=== PATIENT | male | born 2000 | race Caucasian/White ===

== ENCOUNTER 2021-04-12 23:37 | Inpatient (IN) | payer SELFPAY ==
[~2021-04-12] VITALS: Ht 182.9 cm; Wt 83.5 kg
--- NOTE | 2021-04-12 23:52 | NUR ---
BIBS WITH C/O SYNCOPAL EPISODES X2 DAYS. "I BLACK OUT EVERY NOW AND THEN". -TRUAMA -NAUSEA - VOMITTING. DOES NOTE REMEMBER WHEN SYNCOPAL EPISODE HAPPENED. PT A/OX4. TOLERATING R/A WELL WITH NO SOB. DENIES TAKING MEDICATIONS, DRINKING ETOH.
--- NOTE | 2021-04-13 00:10 | NUR ---
URINE COLLECTED AND SENT TO LAB
--- NOTE | 2021-04-13 00:22 | NUR ---
LABS BLOODWORK COLLECTED AND SENT TO LAB. INITIATED RAC #20G S/L
[2021-04-13 00:33] LABS: BASOPHILS % (AUTO) 0.5 % (0.0-2.0); EOSINOPHILS % (AUTO) 0.6 % (0.0-6.0); HEMATOCRIT 48 % (39-51); HEMOGLOBIN 16.2 g/dL (13.5-17.5); LYMPHOCYTES # (AUTO) 2.3 K/uL (0.8-4.8); LYMPHOCYTES % (AUTO) 25.1 % (20.0-44.0); MEAN CORPUSCULAR HGB CONC 34 g/dl (31.0-36.0); MEAN CORPUSCULAR VOLUME 88 fL (80-96); MONOCYTES # (AUTO) 0.6 K/uL (0.1-1.30); NEUTROPHILS # (AUTO) 6.3 K/uL (1.8-8.9); NEUTROPHILS % (AUTO) 67.8 % (43.0-81.0); PLATELET COUNT (AUTO) 215 K/uL (150-450); RED BLOOD CELL COUNT(AUTO) 5.44 MIL/uL (4.5-6.0); WHITE BLOOD COUNT (AUTO) 9.3 K/uL (4.3-11.0)
[2021-04-13 00:46] LABS: ALANINE AMINOTRANSFERASE 29 U/L (12-78); ALBUMIN 4.5 g/dL (3.4-5.0); ALKALINE PHOSPHATASE 67 U/L (46-116); ASPARTATE AMINOTRANSFERASE 19 U/L (15-37); BILIRUBIN,DIRECT 0.1 mg/dL (0.0-0.2); BILIRUBIN,TOTAL 0.5 mg/dL (0.2-1.0); CALCIUM, SERUM 9.2 mg/dL (8.5-10.1); CARBON DIOXIDE 24 mmol/L (21-32); CHLORIDE 107 mmol/L (98-107); CREATININE 0.9 mg/dL (0.6-1.3); GLUCOSE 90 mg/dL (74-106); POTASSIUM 3.5 mmol/L (3.5-5.1); SODIUM SERUM 145 mmol/L (136-145); TOTAL PROTEIN, SERUM 7.8 g/dL (6.4-8.2); UREA NITROGEN, BLOOD 13 mg/dL (7-18)
--- NOTE | 2021-04-13 00:46 | NUR ---
XRAY AT BEDSIDE
[2021-04-13] MEDS ORDERED: MAG HYDROX/AL HYDROX/SIMETH 30 ML UDC PO PRN (02:00)
[2021-04-13] MEDS ORDERED: MAGNESIUM HYDROXIDE 30 ML UDC PO PRN (02:00)
[2021-04-13] MEDS ORDERED: ONDANSETRON HCL/PF 4 MG/2 ML VIAL IVP PRN (02:00)
[2021-04-13] MEDS ORDERED: ACETAMINOPHEN 325 MG TABLET PO PRN (02:00)
[2021-04-13] MEDS ORDERED: Z GUARD REMEDY 2 OZ OINT TP PRN (02:00)
--- NOTE | 2021-04-13 03:12 | NUR ---
PT ASSIGNED TO BED 329
--- NOTE | 2021-04-13 03:33 | NUR ---
REPORT GIVEN TO 3W ASYA PERALES
[2021-04-13 03:38] VITALS: BP 146/72
--- NOTE | 2021-04-13 03:44 | NUR ---
TRANSFERRED PT VIA ACLS PROTOCOL. ALL PT BELONGINGS WITH PT.
[2021-04-13 03:48] VITALS: BP 146/72
--- NOTE | 2021-04-13 03:49 | NUR ---
ADMITTING NOTES RN PT IS A 20 YEAR OLD MALE WITH NO PERTINENT MEDICAL HX OTHER THAN CANNABIS USE. A/O X4 NO PAIN OR RESPIRATORY DISTRESS NOTED OR REPORTED AT THIS TIME. PT IS ON A TELE MONITOR SINUS BRADYCARDIA. PT HAS IV ACCESS ON THE L AC 20# G S/L FLUSHED AND INTACT. PT PRESENTED TO THE ER AFTER HAVING 3-4 EPISODES OF LOSS OF CONSCIOUSNESS PER PT " I WAS SITTING IN BED TALKING TO MY FRIEND WHEN SUDDENLY I STARTED SEEING BLACK DOTS I DON'T REMEMBER ANY THING ELSE AFTER THAT BUT MY FRIENDS SAID IT HAPPENED MULTIPLE TIMES 3-4 TIMES IN TOTAL IT EVEN HAPPENED ON THE WAY TOT HE HOSPITAL" PT HAS NOT HAD ANY MORE EPISODES OF LOSS OF CONSCIOUSNESS PT DENIES HEADACHE N/V AT THIS TIME. PT DID STATE THAT LOSS OF CONSCIOUSNESS IN PRECIPITATED BY "FEELING OF NAUSEA AND SUPER WARM RIGHT BEFORE I BLACK OUT" PT STATED HE HAS BEEN HAVING THESE EPISODE SINCE TWO DAYS AGO. PT SKIN IS WARM AND DRY NO VISIBLE DISCOLORATION PT REFUSED FULL BODY ASSESSMENT AT THIS TIME. BELONGS CHECKED. PT HELPED TO THE RESTROOM PT HAS STEADY GAIT BUT WAS INSTRUCTED TO USE CALL LIGHT IF HE NEEDS TO GET UP DUE TO RECENT LOSS OF CONSCIOUSNESS PT AGREED CALL LIGHT WITHIN REACH, BEDSIDE TABLE WITHIN REACH. BED ALARM ON BILATERAL SIDE RAILS UP FOR SAFETY. HOB ELEVATED FOR ASPIRATION PRECAUTIONS. WILL CONTINUE TO MONITOR.
--- NOTE | 2021-04-13 06:30 | NUR ---
RN NOTES A/O X4 NO PAIN OR RESPIRATORY DISTRESS NOTED OR REPORTED AT THIS TIME. PT IS ON A TELE MONITOR SINUS BRADYCARDIA WITH SINUS ARRHYTHMIA . PT HAS IV ACCESS ON THE LAC 20# G S/L FLUSHED AND INTACT. NO N/V REPORTED NO HEADACHE, NO EPISODES OF LOSS ON CONSCIOUSNESS. ALL NURSING NEEDS MET THROUGHOUT THE SHIFT.INSTRUCTED PT TO USE CALL LIGHT IF HE NEEDS TO GET UP DUE TO EPISODES OF LOSS OF CONSCIOUSNESS PT AGREED CALL LIGHT WITHIN REACH, BEDSIDE TABLE WITHIN REACH. BED ALARM ON BILATERAL SIDE RAILS UP FOR SAFETY. HOB ELEVATED FOR ASPIRATION PRECAUTIONS. WILL ENDORSE CARE TO DAY SHIFT NURSE.
--- NOTE | 2021-04-13 07:30 | NUR ---
ON SITE SERVICES SPECIALIST OPENING NOTES RECEIVED PATIENT IN BED, A/O X4, IN NO ACUTE DISTRESS NOTED. PT IS ON A TELE MONITOR SINUS BRADYCARDIA WITH SINUS ARRHYTHMIA HR AT 59. PT HAS IV ACCESS ON THE LAC 20# G S/L FLUSHED AND INTACT. NO N/V REPORTED NO HEADACHE. SAFETY PRECAUTIONS IN PLACE: INSTRUCTED PT TO USE CALL LIGHT IF HE NEEDS TO GET UP DUE TO EPISODES OF LOSS OF CONSCIOUSNESS PT AGREED CALL LIGHT WITHIN REACH, BEDSIDE TABLE WITHIN REACH. BED ALARM ON BILATERAL SIDE RAILS UP FOR SAFETY. HOB ELEVATED FOR ASPIRATION PRECAUTIONS. WILL CONTINUE TO MONITOR ACCORDINGLY.
[2021-04-13] MEDS: PANTOPRAZOLE 40 MG TABLET.DR PO SCH (07:38)
[2021-04-13 08:00] VITALS: BP 124/60
[2021-04-13] MEDS: BENAZEPRIL HCL 10 MG TABLET PO SCH (08:46)
[2021-04-13 12:00] VITALS: BP 137/71
[2021-04-13 16:00] VITALS: BP 120/72
--- NOTE | 2021-04-13 18:24 | NUR ---
DRAFTER TOPOGRAPHICAL CLOSING NOTES PATIENT IN BED, ASLEEP, EASILY AWAKEN BY VERBAL AND TACTILE STIMULI, IN NO ACUTE DISTRESS NOTED. PT IS ON A TELE MONITOR SR HEART RATE AT 70'S. PT HAS IV ACCESS ON THE LAC 20# G S/L FLUSHED AND INTACT. NO N/V REPORTED, NO HEADACHE., NO DIZZINESS. SAFETY PRECAUTIONS IN PLACE: BEDSIDE TABLE WITHIN REACH. BED ALARM ON BILATERAL SIDE RAILS UP FOR SAFETY. HOB ELEVATED FOR ASPIRATION PRECAUTIONS. BED ON LOWEST LOCKED POSITION. ALL NEEDS ATTENDED AND MET. DUE MEDS GIVEN ORDERED. WILL ENDORSE TO ONCOMING SHIFT FOR ELIAS.
--- NOTE | 2021-04-13 19:30 | NUR ---
RN OPENING NOTE PATIENT IN BED AWAKE, WITH VISITORS AT BEDSIDE. PATIENT IS ABLE TO MAKE NEEDS KNOWN, A/O X 4. PATIENT DOES NOT COMPLAIN OF DIZZINESS AT THIS TIME. PATIENT NOT IN ANY APPARENT DISTRESS. TOLERATING ROOM AIR. PATIENT'S TELE MONITOR READS SR 72 BPM. SAFETY MEASURES IN PLACE: BED LOCKED AND IN LOWEST POSITION, CALL LIGHT WITHIN REACH, SIDE RAILS UP. WILL MONITOR PATIENT CLOSELY.
[2021-04-13 20:00] VITALS: BP 143/92
--- NOTE | 2021-04-13 20:15 | NUR ---
RN NOTE PATIENT GIVEN TYLENOL FOR MILD PAIN
[2021-04-14] VITALS: BP 129/75
--- NOTE | 2021-04-14 03:58 | NUR ---
RN NOTE PATIENT REFUSED 4 AM VITALS CHECK
[2021-04-14 07:11] LABS: BASOPHILS % (AUTO) 0.6 % (0.0-2.0); EOSINOPHILS % (AUTO) 1.9 % (0.0-6.0); HEMATOCRIT 47 % (39-51); HEMOGLOBIN 16.2 g/dL (13.5-17.5); LYMPHOCYTES # (AUTO) 2.2 K/uL (0.8-4.8); LYMPHOCYTES % (AUTO) 36.5 % (20.0-44.0); MEAN CORPUSCULAR HGB CONC 34 g/dl (31.0-36.0); MEAN CORPUSCULAR VOLUME 89 fL (80-96); MONOCYTES # (AUTO) 0.5 K/uL (0.1-1.30); MONOCYTES % (AUTO) 8.4 % (2.0-12.0); NEUTROPHILS # (AUTO) 3.1 K/uL (1.8-8.9); NEUTROPHILS % (AUTO) 52.6 % (43.0-81.0); PLATELET COUNT (AUTO) 199 K/uL (150-450); RED BLOOD CELL COUNT(AUTO) 5.33 MIL/uL (4.5-6.0); WHITE BLOOD COUNT (AUTO) 5.9 K/uL (4.3-11.0)
--- NOTE | 2021-04-14 07:30 | NUR ---
received pt. in am alert and oriented x4.vs stable.no complaints offered.
--- NOTE | 2021-04-14 07:33 | NUR ---
RN CLOSING NOTE PATIENT IN BED, EASILY AWAKENED. RAC 20 G PATENT AND INTACT. NO COMPLAINS OF ANY PAIN OR DISCOMFORT. TELE MONITOR READS SR 70 BPM. BREATHING EVEN AND UNLABORED. ALL ORDERS CARRIED OUT, ALL NEEDS MET AND ATTENDED. SAFETY MEASURES MAINTAINED. ENDORSED TO DAY SHIFT NURSE FOR ELIAS.
[2021-04-14 07:37] LABS: ALBUMIN 4.3 g/dL (3.4-5.0); BILIRUBIN,TOTAL 0.7 mg/dL (0.2-1.0); CALCIUM, SERUM 9.1 mg/dL (8.5-10.1); PHOSPHORUS 5.1 mg/dL (2.5-4.9); POTASSIUM 3.7 mmol/L (3.5-5.1); TOTAL PROTEIN, SERUM 7.6 g/dL (6.4-8.2)
[2021-04-14 07:42] LABS: THYROID STIMULATING HORMONE 0.873 uIU/mL (0.358-3.74)
[2021-04-14] MEDS ORDERED: BENA10TA74 PO (07:53)
[2021-04-14 08:00] VITALS: BP 113/75
[2021-04-14] MEDS: BENAZEPRIL HCL 10 MG TABLET PO SCH (09:00)
--- NOTE | 2021-04-14 10:30 | NUR ---
dr. lr in and discharge order given.hep lock out.
[2021-04-14] MEDS: PANTOPRAZOLE 40 MG TABLET.DR PO SCH (10:56)
[2021-04-14 12:00] VITALS: BP 128/63
--- NOTE | 2021-04-14 12:30 | NUR ---
mother calling in to check on pt. status.given info.
--- NOTE | 2021-04-14 13:25 | NUR ---
all papers signed.hep lock out.
--- NOTE | 2021-04-14 13:35 | NUR ---
taken via w/c to lobby accompanied by friend and automotive refinisher.
--- NOTE | 2021-04-14 14:00 | NUR ---
pt. called as pair of sneakers found in rm.pt. stated to toss mary ann.
== END 2021-04-14 14:05 | disposition home or self-care (01) | DRG 312 ==
LOC: ER 23:37 → TRANSITION 04-13 03:09 → TELE 04-13 03:13
PROVIDERS: ADMIT Family Medicine; ATTEND Family Medicine
DX: R55 Syncope and collapse (principal); I10 Essential (primary) hypertension; F17.200 Nicotine dependence, unspecified, uncomplicated; R53.1 Weakness; Z71.6 Tobacco abuse counseling; Z20.822 Contact with and (suspected) exposure to COVID-19; G43.909 Migraine, unspecified, not intractable, without status migrainosus; F12.90 Cannabis use, unspecified, uncomplicated
CPT/HCPCS: 36415; 71045-TC; 80048-TC; 80053-TC; 80061-TC; 80076-TC; 84100-TC; 84443-TC; 84484-TC; 85025-TC; 87081-TC; 93307-TC; G0378; G0480